=== PATIENT | female | born 1960 ===

== ENCOUNTER 2018-09-03 05:39 | Inpatient (IN) ==
[2018-09-03] MEDS ORDERED: Lactated Ringers 1,000 ML PRIMARY IV ONE ×3 (05:46→11:49)
[2018-09-03] MEDS ORDERED: ceFAZolin Inj 2gm (Premix) 2 GM/50 ML BAG IV ONE ×2 (05:47→06:00)
[2018-09-03] MEDS ORDERED: Vancomycin-PHA to Dose IV PRN (06:00)
[2018-09-03] MEDS ORDERED: Nasal Sanitizer POPSWAB ampule 3 AMP (Nozin) PREOP DOSE ENOS SCH (06:00)
[2018-09-03] MEDS ORDERED: LIDOCAINE W/ SODIUM BICARB 0.5 ML SYR SUBD ONE (06:00)
[2018-09-03 06:17] LABS: BILIRUBIN,URINE NEGATIVE (NEG); CLARITY,URINE CLEAR (CLEAR); COLOR,URINE YELLOW (Y); GLUCOSE, URINE (UA) NEGATIVE (NEG); OCCULT BLOOD,URINE MODERATE (NEG); PROTEIN,URINE NEGATIVE (NEG); UROBILINOGEN,URINE 0.2 EU/dL (0.2)
[2018-09-03 06:18] LABS: URINE SAMPLE TYPE CLEAN CATCH URINE
[2018-09-03 06:23] LABS: SQUAMOUS EPITHELIAL CELL,UR FEW
[2018-09-03] MEDS ORDERED: BACITRACIN 50,000 UNIT VIAL IRRIG ONE ×2 (06:55→11:56)
[2018-09-03] MEDS ORDERED: Sodium Chloride 0.9% vial 10 ML ONE ×2 (06:55→11:56)
[2018-09-03] MEDS ORDERED: BUPIVACAINE 0.25% W/ EPI - 10 ML VIAL ONE (06:59)
[2018-09-03] MEDS ORDERED: LIDOCAINE HCL 2 % 10 ML JELLY URO-JECT TOPICAL ONE ×2 (07:01→07:15)
[2018-09-03] MEDS ORDERED: fentaNYL Inj 250 MCG/5 ML VIAL ONE (07:01)
[2018-09-03] MEDS ORDERED: ROCURONIUM 10 MG/1 ML - 5 ML VIAL IVP ONE (07:04)
[2018-09-03] MEDS ORDERED: SCOPOLAMINE HYDROBROMIDE 1.5 MG - 1 EACH PATCH TRANSDERM ONE (07:18)
[2018-09-03] MEDS ORDERED: ceFAZolin 1 GM VIAL ONE (11:36)
[2018-09-03] MEDS ORDERED: FUROSEMIDE 10 MG/1 ML - 4 ML ONE (11:36)
[2018-09-03] MEDS ORDERED: Propofol 1,000 MG/100 ML VIAL IV ONE (11:49)
[2018-09-03] MEDS ORDERED: ceFAZolin Inj 1 GM in Sodium Chloride 0.9% 100 ML IV ONE (12:16)
[2018-09-03] MEDS ORDERED: MORPHINE SULFATE 2 MG/1 ML IVP PRN (12:32)
[2018-09-03] MEDS ORDERED: ONDANSETRON 4 MG/2 ML VIAL IVP PRN ×2 (12:32→13:40)
[2018-09-03] MEDS ORDERED: Metoclopramide Inj 10 MG/2 ML VIAL IVP PRN (12:32)
[2018-09-03] MEDS ORDERED: NALOXONE 0.4 MG/1 ML VIAL IVP PRN (12:32)
[2018-09-03] MEDS ORDERED: Prochlorperazine Edisylate Inj 10mg/2ml vial IVP PRN ×2 (12:32→13:40)
[2018-09-03] MEDS ORDERED: LIDOCAINE W/ SODIUM BICARB 0.5 ML SYR SUBD PRN (12:32)
[2018-09-03] MEDS ORDERED: PROMETHAZINE 25 MG/1 ML VIAL IM PRN ×2 (12:32→13:40)
[2018-09-03] MEDS ORDERED: fentaNYL Inj 100 MCG/2 ML VIAL IVP PRN (12:32)
[2018-09-03] MEDS ORDERED: Meperidine Inj 50 MG/ML CARPUJECT IVP PRN (12:32)
--- NOTE | 2018-09-03 12:32 | CRNA.PROGR ---
Anesthesia Time - Procedure/Recovery Time Start Date: 09/03/18 End Date: 09/03/18 Anesthesia : Time In: 07:35 Anesthesia : Time Out: 12:27 Anesthesia : Total Time: 292 - Total Anesthesia Time Total Anesthesia Time (minutes): 292 - Other Weight: 41.821 kg Height: 4 ft 10 in Body Mass Index (BMI): 19.3 Anesthesia Type: General Anesthesia : ET
--- NOTE | 2018-09-03 12:32 | CRNA.PROGR ---
Anesthesia Recovery Phase I - Post Anesthesia Evaluation Patient's Condition on Arrival in Phase I: Stable (awake) Pain Level: 2
[2018-09-03] MEDS: HYDROmorphone 2 MG/1 ML IVP PRN ×2 (12:41→13:00)
[2018-09-03] MEDS ORDERED: HYDROmorphone 2 MG/1 ML ONE (12:41)
[2018-09-03] MEDS ORDERED: Lactated Ringers 1,000 ML PRIMARY IV SCH (12:45)
--- NOTE | 2018-09-03 13:12 | GEN.OPNOTE ---
Operative Note Surgery Date: 09/03/18 Preoperative Diagnosis: 1. Persistent chronic severe neck pain. 2. Multilevel cervical degenerative disc disease C3-C7, most advanced C5-6. 3. Multilevel cervical spondylosis with facet arthropathy and hypertrophy. 4. Possible/likely C5-6 and C6-7 pseudofusion. 5. Status post C5-6 and C6-7 facet joint fusions using the DTRAX system. Postoperative Diagnosis: 1. Persistent chronic severe neck pain. 2. Multilevel cervical degenerative disc disease C3-C7, most advanced C5-6. 3. Multilevel cervical spondylosis with facet arthropathy and hypertrophy. 4. Pseudofusion C5-6 and C6-7. 5. Status post C5-6 and C6-7 facet joint fusions using the DTRAX system. Procedure: 1.) Arthrodesis, anterior cervical, with discectomy, osteophytectomy, and foraminotomies bilaterally with removal of the posterior longitudinal ligame nt with disc space preparation for fusion of the interspace, C3-4. (CPT code: 04981). 2.) Arthrodesis, anterior cervical, with discectomy, osteophytectomy and foraminotomies bilaterally with removal of the posterior longitudinal ligament with disc space preparation for fusion of the interspace, C4-5. (CPT code: 49350). 3.) Arthrodesis, anterior cervical, with discectomy, osteophytectomy and foraminotomies bilaterally with removal of the posterior longitudinal ligament with disc space preparation for fusion of the interspace, C5-6. (CPT code: 48752). 4.) Arthrodesis, anterior cervical, with discectomy, osteophytectomy and foraminotomies bilaterally with removal of the posterior longitudinal ligament with disc space preparation for fusion of the interspace, C6-7. (CPT code: 48035). 5.) Insertion of a 6 mm x 12 mm x 14 mm 6-degree lordotic [place] Tritanium C titanium anterior cervical cage filled in the center with [place] DBM Putty (implantable allograft) into the C3-4 interspace for fusion of the C3-4 interspace. (CPT code: 44847). 6.) Insertion of a 7 mm x 12 mm x 14 mm 6-degree lordotic [place] Tritanium C titanium anterior cervical cage filled in the center with [place] DBM Putty (implantable allograft) into the C4-5 interspace for fusion of the C4-5 interspace. (CPT code: 13963). 7.) Insertion of a 7 mm x 12 mm x 14 mm 6-degree lordotic [place] Tritanium C titan ium anterior cervical cage filled in the center with Sidra DBM Putty (implantable allograft) into the C5-6 interspace for fusion of the C5-6 interspace. (CPT code: 26804). 8.) Insertion of a 7 mm x 12 mm x 14 mm 6- degree lordotic [place] Tritanium C titanium anterior cervical cage filled in the center with [place] DBM Putty (implantable allograft) into the C6-7 interspace for fusion of the C6-7 interspace. (CPT code: 05254). 9.) Anterior cervical plating, C3-7 using a 4 level, 10 hole, 60 mm Sidra Aviator titanium anterior cervical plate affixed to the C3 vertebral body with 4.0 mm x 14 mm variable angle titanium anterior cervical screws, to the C4, C5, and C6 vertebral bodies using 4.0 mm x 12 mm variable angle titanium anterior cervical screws, and to the C7 vertebral body using 4.0 mm x 14 mm fixed angle titanium anterior cervical screws. (CPT code: 48486). 10.) Use of 5 cc of [place] BIO DBM Putty (implantable allograft) for filling of the anterior cervical cages. (CPT code: 64774). 11.) Use of the operative microscope for the microsurgical techniques used for the C3-4, C4-5, C5-6, and C6-7 discectomies and foraminotomies. (CPT code: 92653). 12.) Use of intra-operative fluoroscopy for location of the correct surgical levels and for confirmation of the final position of the intervertebral cages and final confirmation of the position of the anterior cervical hardware elements. 13.) Use of intra-operative neuromonitoring including EMG's, SSEP's, and MEP's. Surgeon: Kwasi Gonzalez MD Letter Stamping Machine Operator: REMA Baker Anesthesia Provider: Brad Sanchez MD Anesthesia Type: General Estimated Blood Loss (mL): 100 Fluids: See anesthesia record Pathology: None Indications: Ms. Fiore is a 57 year old woman with chronic neck pain. She is a previous patient of Dr. Isabel at [facility]. She is status post a C5-6, C6-7 DTRAX procedure performed in April [address] Isabel. She states her neck pain was better after this surgery for only a short time, but she now rates her neck pain at a 10/10 every day. She denies any arm pain or weakness. She had a cervical imaging studies that demonstrated multilevel cervical degenerative disc disease and multilevel cervical spondylosis with retrolisthesis of C5 on C6 and anterolisthesis of C6 and C7. The studies demonstrated bilateral C5-6 and C6-7 facet cages. She has failed to have improvement in her significant neck pain with expectant management and with non- operative therapies. We had discussed the option of proceeding with a C3-4, C4- 5, C5-6, and C6-7 anterior cervical discectomy and fusion for possible more durable relief of her symptoms. She wished to proceed with the surgical procedure. She presents today for the surgical procedure. Findings: 1.) Multilevel diffuse disc/osteophyte complexes. 2.) Abnormal (greater then physiologic motion) C4-5. 3.) Completely collapsed C5-6 disc space with posterior partially calcified annulus and ligament. 6.) Pseudofusion C5-6 and C6-7. Complications: None Operative Summary: Ms. Fiore was met in the preoperative area. Her documented surgical history and physical was reviewed. We reviewed the procedure to be performed and we were in agreement on the procedure to be performed and this matched what was written on the patient's consent form. Any questions that Ms. Fiore or her family had were answered before she was taken back to the operating room suite. Ms. Fiore was brought back to the operating room suite. She was moved over onto the surgical bed in supine position. General anesthesia was induced by the anesthesia staff and she was intubated. A Hartley catheter was placed in her bladder for the procedure. She had pneumatic compression hose placed on her lower legs bilaterally. Her head was placed on a gel ring and rolled up surgical towels were placed in the intrascapular area and under her shoulders bilaterally. Her arms were gently tucked at her sides. All bony prominences were well padded. Her Hartley catheter was checked to be free from kinks. Her pneumatic compression hose were attached to a pneumatic compression devise. The C-arm fluoroscopy unit was used to help localize the skin incision for the approach to the intended surgical levels. The skin was marked along the medial border of the sternocleidomastoid muscle with a skin marker. Ms. Fiore was prepped and draped in the usual and standard fashion. She was given 2 grams of Ancef and 1 gram of vancomycin IV for perioperative antibiosis. A standard surgical timeout was performed identifying the correct patient, the correct procedure, and the correct equipment being available for the procedure. The intended skin incision was injected subcutaneously with quarter percent Marcaine with 1 in 200,000 epinephrine. The skin was incised with a 10 blade scalpel and all dermal and superficial bleeding points controlled with bipolar cautery. Dissection was continued down through the subcutaneous tissue to the level of the platysma muscle. The platysma muscle was incised with the Metzenbaum scissors in the direction of the skin incision. This allowed identification the medial border of the sternocleidomastoid muscle. Further dissection identified the omohyoid muscle which was circumferentially dissected out, tagged with two 0-Silk suture and then cut with a Metzenbaum scissors with the muscle stumps retracted with snaps attached to the sutures. Continued dissection was performed medial to the sternocleidomastoid muscle in both a sharp and blunt fashion down to the pre- vertebral fascia. The carotid artery was palpated to be lateral to the dissection plane. Cloward hand-held retractors were used to retract and protect the soft tissues while the prevertebral fascia was dissected with a Kitner. Once a disc space became exposed a bent spinal needle was placed into the disc space and the level was localized as the C4-5 level, one of the intended surgical levels with lateral fluoroscopy. Continued dissection of the prevertebral fascia was performed exposing the C3, C4, C5, C6, and C7 vertebral bodies. The medial border of the longus coli muscle was dissected with Bovie cautery with an insulated tip turned down to a low setting from C3-C7 bilaterally. The hand-held Cloward retractors were then replaced with the Anesthesiology Crna self-retaining retractor system which was first placed at the C3-4 level to expose this level and protect the soft tissues at this level. A 12 mm distraction pin was placed into the C3 vertebral body and another was placed into the C4 vertebral body. The operative microscope was brought into the surgical field and used for the microsurgical techniques used for the C3-4 discectomy. An annulotomy was performed with a 15 blade scalpel and disc material was removed with a pituitary rongeur. Additional disc and cartilaginous endplate was loosened in the disc space using a small straight curette with the fragments being removed with a pituitary rongeur. The high-speed Ogorod Javier drill with a matchstick bit was used to perform arthrodesis/decortication of the C3 and C4 endplates preparing the endplates for fusion. The same drill with the same bit was used to drill away the prominent diffuse osteophytes along the posterior inferior aspect of the C3 vertebral body and the posterior superior aspect of C4 vertebral body as well as the uncovertebral joints bilaterally which were hypertrophied bilaterally. Foraminotomies were performed bilaterally with the same drill with same bit. A nerve hook was used to define the plane between the posterior longitudinal ligament and the dura. The posterior longitudinal ligament was completely removed with small Kerrison punches. The same instruments were used to extend the foraminotomies bilaterally that had been started with the high-speed drill with a matchstick bit. Excellent decompression of the spinal canal, neuroforamen, and exiting nerve ro ots was assured both by visual inspection as well as by palpation with a nerve hook underneath the vertebral bodies and out the neuroforamen bilaterally. The interspace was irrigated with bacitracin irrigation. FloSeal hemostatic agent was placed over all exposed dural elements. The interspace was sized the appropriate size anterior cervical cage. A 6 mm x 14 mm x17 mm 6-degree lordotic Tritanium C titanium anterior cervical cage was selected and filled in the center with [place]ra DBM Putty (implantable allograft) and then inserted into the C3-4 interspace with the bartender manager. On insertion it was felt that the cage may be deeper then the vertebral body and lateral radiographic imaging did demonstrate the cage to protrude slightly anterior and posterior to the edges of the vertebral bodies so it was subsequently removed. A small footprint cage was then selected, a 6 mm x 12 mm x 14 mm 6-degree lordotic Tritanium C titanium anterior cervical cage was filled in the center with [place] DBM Putty (implantable allograft) and then inserted into the C3-4 interspace with the bartender manager. The cage was gently countersunk with a bone tamp and mallet. The cage obtained good purchase between the C3 and C4 endplates. The final position of the cage was confirmed with lateral fluoroscopy. The C3 Baldwin distraction pin was removed and bony bleeding was controlled with FloSeal and a surgical vivien. The Anesthesiology Crna self-retaining retractor system was removed and placed across the C4-5 level for the exposure this level and the protection of the soft tissues at this level. The Baldwin distraction pin was placed into the C5 vertebral body. The operative microscope was used for the microsurgical techniques used for the C4-5 discectomy. An annulotomy was performed with a 15 blade scalpel and disc material was removed with a pituitary rongeur. Additional disc and cartilaginous endplate was loosened in the disc space with a small straight curette with the fragments being removed with a pituitary ronqeur. This level demonstrated greater movement between the C4 and C5 vertebral bodies during the dissection, greater then expected physiologic motion. The high-speed Ogorod Javier drill with a matchstick bit was used to perform arthrodesis/decortication of the C4 and C5 endplates preparing the endplates for fusion. The same drill with the same bit was used to drill away the diffuse, prominent osteophytes along the posterior inferior aspect of the C4 vertebral body and the posterior superior aspect of the C5 vertebral body as well as to drill away the uncovertebral joint hypertrophy bilaterally. Foraminotomies were performed bilaterally with the same drill with the same bit. A nerve hook was used to define the plane between the posterior longitudinal ligament and the dura. The posterior longitudinal ligament was completely removed with small Kerrison punches. The same instruments were used to extend the foraminotomies bilaterally that had been started with the high-speed drill with a matchstick bit. Excellent decompression of the spinal canal, neuroforamen, and exiting nerve roots was assured both by visual inspection as well as by palpation with a nerve hook underneath the vertebral bodies and out the neuroforamen bilaterally. The interspace was irrigated with bacitracin irrigation. FloSeal hemostatic agent was placed over all exposed dural elements. The interspace was sized the appropriate size anterior cervical cage. A 7 mm x 12 mm x 14 mm 6-degree Tritanium C titanium anterior cervical cage was selected and filled in the center with Sidra DBM Putty (implantable allograft) and then inserted into the C4-5 interspace with the bartender manager. The cage was gently countersunk with a bone tamp and mallet. The cage obtained good purchase between the C4 and C5 endplates. The final position of the cage was confirmed with lateral fluoroscopy. The C5 Baldwin distraction pin was removed and bony bleeding was controlled with FloSeal and a surgical vivien. The Anesthesiology Crna self-retaining retractor system was removed and placed across the C5-6 level for the exposure this level and the protection of the soft tissues at this level. The Baldwin distraction pin was placed into the C6 vertebral body. The operative microscope was used for this microsurgical techniques used for the C5-6 discectomy. An annulotomy was performed with a 15 blade scalpel and disc material was removed with a pituitary rongeur. Additional disc and cartilaginous endplate was loosened in the anterior aspect of the disc space with a small straight curette with the fragments being removed with a pituitary ronqeur. The disc space was quite collapsed and there was minimal movement at this level. The high-speed Ogorod Javier drill with a matchstick bit was used to perform the majority of the discectomy at this level and to perform the arthrodesis/decortication of the C5 and C6 endplates preparing the endplates for fusion. The same drill with the same bit was used to drill away the diffuse, prominent osteophytes along the posterior inferior aspect of the C5 vertebral body and the posterior superior aspect of the C6 vertebral body as well as to drill away the uncovertebral joint hypertrophy bilaterally. Foraminotomies were performed bilaterally with the same drill with the same bit. A nerve hook was used to define the plane between the posterior longitudinal ligament and the dura. The posterior longitudinal ligament was completely removed with small Kerrison punches. The same instruments were used to extend the foraminotomies bilaterally that had been started with the high-speed drill with a matchstick bit. Excellent decompression of the spinal canal, neuroforamen, and exiting nerve roots was assured both by visual inspection as well as by palpation with a nerve hook underneath the vertebral bodies and out the neuroforamen bilaterally. The interspace was irrigated with bacitracin irrigation. FloSeal hemostatic agent was placed over all exposed dural elements. The interspace was sized the appropriate size anterior cervical cage. A 7 mm x 12 mm x 14 mm 6-degree Tritanium C titanium anterior cervical cage was selected and filled in the center with Sidra DBM Putty (implantable allograft) and then inserted into the C5-6 interspace with the bartender manager. The cage was gently countersunk with a bone tamp and mallet. The cage obtained good purchase between the C6 and C7 endplates. The final position of the cage was confirmed with lateral fluoroscopy. The C5 Baldwin distraction pin was removed and bony bleeding was controlled with FloSeal and a surgical vivien. The Anesthesiology Crna self-retaining retractor system was removed and placed across the C5-6 level for the exposure this level and the protection of the soft tissues at this level. The Baldwin distraction pin was placed into the C7 vertebral body. The operative microscope was used for the microsurgical techniques used for the C6-7 discectomy. An annulotomy was performed with a 15 blade scalpel and disc material was removed with a pituitary rongeur. Additional disc and cartilaginous endplate was loosened in the anterior disc space with a small straight curette with the fragments being removed with a pituitary ronqeur. The high-speed [employer] drill with a matchstick bit was used to perform the majority of the discectomy at this level due to the degree of disc space collapse and to perform arthrodesis/decortication of the C6 and C7 endplates preparing the endplates for fusion. This level was clearly not fused from the patient's previous posterior DTRAX procedure. The same drill with the same bit was used to drill away the diffuse, prominent osteophytes along the posterior inferior aspect of the C6 vertebral body and the posterior superior aspect of the C7 vertebral body as well as to drill away the uncovertebral joint hypertrophy bilaterally. Foraminotomies were performed bilaterally with the same drill with the same bit. A nerve hook was used to define the plane between the posterior longitudinal ligament and the dura. The posterior longitudinal ligament was completely removed with small Kerrison punches. The same instruments were used to extend the foraminotomies bilaterally that had been started with the high-speed drill with a matchstick bit. Excellent decompression of the spinal canal, neuroforamen, and exiting nerve roots was assured both by visual inspection as well as by palpation with a nerve hook underneath the vertebral bodies and out the neuroforamen bilaterally. The interspace was irrigated with bacitracin irrigation. FloSeal hemostatic agent was placed over all exposed dural elements. The interspace was sized the appropriate size anterior cervical cage. A 7 mm x 12 mm x 14 mm 6-degree Tritanium C titanium anterior cervical cage was selected and filled in the center with [place] DBM Putty (implantable allograft) and then inserted into the C6-7 interspace with the bartender manager. The cage was gen tly countersunk with a bone tamp and mallet. The cage obtained good purchase between the C6 and C7 endplates. The final position of the cage was confirmed with lateral fluoroscopy. The Baldwin distraction pins in the C6 and C7 vertebral bodies were removed. Bony bleeding was controlled FloSeal and surgical patties. The Anesthesiology Crna self- retaining retractor system was removed and placed in the center portion of the surgical dissection to provide the proper exposure needed for the instrumentation portion of the procedure. Any remaining C3, C4, C5, C6, and C7 anterior osteophytes were removed with the large [place] rongeur as well as with the high speed drill with the matchstick bit. The appropriate size anterior cervical plate were selected both by visual inspection as well as by lateral fluoroscopy. A 4 level, 10 hole, 60 mm Sidra Aviator titanium anterior cervical plate was selected and affixed to the C3 vertebral bodies using 4.0 mm x 14 mm variable angle titanium anterior cervical screws and to the C4, C5, and C6 vertebral bodies using 4.0 mm x 12 mm variable angle titanium screws, and to the C7 vertebral body using 4.0 mm x 14 mm fixed angle titanium anterior cervical screws. All screws obtained good purchase in the vertebral body bone. The locking mechanism was then deployed at each with visual inspection confirming that the locking mechanism fully deployed across each of the screw heads at each level of the plate bilaterally. The Anesthesiology Crna self-retaining retractor system was removed from the surgical site. Final AP and lateral fluoroscopic images were obtained. The thrasher of the dissection plane were inspected for any bleeding points. Any identified were coagulated with bipolar cautery. The surgical site was copiously irrigated with bacitracin irrigation allowing the irrigant to sit to again inspect for any bleeding points with none identified. A medium LACIE drain was placed into the surgical site. The closure portion of the procedure was begun. The omohyoid muscle was re-approximated by the 0-Silk suture attached to the muscle stumps and by two interrupted 3-0 Vicryl suture. The platysma muscle was reapproximated with 3-0 Vicryl suture in an interrupted fashion. The dermis and superficial subcutaneous tissue was reapproximated with 3-0 Vicryl suture in an inverted interrupted fashion. The incision was cleansed with a bacitracin soaked sponge and dried with a sterile dry sponge. Steri-Strips were placed across the incision. The incision was dressed with a Covaderm dressing. The surgical drain was secured with suture. The drain site was dressed. All surgical drapes removed from Ms. Fiore. She was carefully moved over onto the PACU stretcher. She was awoken and extubated by the anesthesia staff. She was taken to the recovery room in stable condition. All surgical counts reported as correct by the scrub and circulating personnel. A Physician's Letter Stamping Machine Operator, Ms. Felipa Syed PA-C, assisted with the procedure including the exposure and closure portions of the procedure. She also provided irrigation and suctioning throughout the procedure.
[2018-09-03] MEDS ORDERED: Vancomycin-PHA to Dose IV SCH (13:40)
[2018-09-03] MEDS ORDERED: MAGNESIUM 400 MG/5 ML - 30 ML (MILK OF MAGNESIA) PO PRN (13:40)
[2018-09-03] MEDS ORDERED: MAGNESIUM CITRATE 296 ML SOLUTION PO PRN (13:40)
[2018-09-03] MEDS ORDERED: Fleet Enema 133ml RECTAL PRN (13:40)
[2018-09-03] MEDS ORDERED: DIAZEPAM 5 MG TABLET PO PRN (13:40)
[2018-09-03] MEDS ORDERED: DIAZEPAM 10 MG/2 ML (5 MG/1 ML) CARPUJECT IVP PRN (13:40)
[2018-09-03] MEDS ORDERED: NICOTINE 14 MG /DAY PATCH TRANSDERM PRN (13:40)
[2018-09-03] MEDS ORDERED: Ondansetron ODT Tab 4 MG TAB PO PRN (13:40)
[2018-09-03] MEDS ORDERED: BISACODYL 5 MG TABLET PO PRN (13:40)
[2018-09-03] MEDS ORDERED: DOCUSATE 100 MG CAPSULE PO PRN (13:40)
--- NOTE | 2018-09-03 14:11 | CONSULT ---
Consult Note - Consult Consult Date: 09/03/18 Reason for Consult: PostOp Consulation : Neuro Requesting Physician: Dr. Gonzalez Primary Care Provider: NONE NONE - History of Present Illness History of Present Illness: This is a 57 years old female with medical history significant for history of chronic neck pain secondary to multilevel cervical degenerative disc disease, history of migraine headache who came into the hospital to have neck surgery and was done by Dr. Gonzalez please see his note. The hospitalist service were consulted postoperatively for management of medical issues. The patient was laying in bed does not appear in distress. She is denying any complaint there is no pain no nausea no headache no shortness of breath. Past Medical History Medical History: 1. History of migraine headaches takes Imitrex as needed. 2. History of chronic neck pain Surgical History: 1. History of neck surgery before Family History: Reviewed an Not Pertinent Past Social History: Lives in [facility], she smokes planning on quitting, doesn't drink no drugs. Tobacco Use: Current Every Day Smoker In the Past 12 Months, Have Used or Abuse Any of the Following Substance: None Review of Systems - Review of Systems All Systems: Reviewed & No Additional Complaints Except as Stated Medication / Allergies Home Medications: Home Medications Medication Instructions Recorded Confirmed clonazepam 1 mg tablet 1 mg PO TID 03/06/18 09/03/18 doxylamine succinate 25 mg tablet 25 mg PO QHS PRN 03/06/18 09/02/18 erenumab-aooe 70 mg/mL 140 mg SUBCUT QMONTH 03/06/18 09/03/18 subcutaneous auto-injector sumatriptan 100 mg tablet 100 mg PO Q2-4H PRN 03/06/18 09/03/18 tizanidine 4 mg capsule 4 mg PO TID PRN 03/06/18 09/03/18 Nicotine [Nicoderm Cq] 1 ea TD PRN PRN 09/02/18 09/02/18 Tramadol HCl [Ultram] 50 mg PO Q4HR 09/02/18 09/03/18 Multivit-Minerals/Ferrous Gluc 9 mg PO 09/03/18 [Multi-Jaquan Liquid] Potassium 99 mg PO 09/03/18 Allergies/Adverse Reactions: Allergies Allergy/AdvReac Type Severity Reaction Status Date / Time divalproex sodium Allergy Severe Other : Verified 09/03/18 13:44 [From Depakote] See Comment topiramate [From Topamax] Allergy Severe Other : Verified 09/03/18 13:44 See Comment amitriptyline Allergy Intermediate Other : Verified 09/03/18 13:44 See Comment gabapentin AdvReac Intermediate Other : Verified 09/03/18 13:44 See Comment Exam - Vitals Vital Signs: Vital Signs Temperature 97.3 F Temperature Source Temporal Artery Scan Pulse Rate [Pulse Oximeter] 79 Pulse Rate 96 Respiratory Rate 20 Blood Pressure [Right Arm] 109/72 Blood Pressure 108/78 Pulse Ox 97 Oxygen Flow Rate 3 Oxygen Delivery Method Nasal Cannula Height 4 ft 10 in Weight 92 lb 3.2 oz - General General Appearance: No Acute Distress, Cooperative - Head Head Exam: Normal Inspection - Eye Eye Exam: POSITIVE: Normal Appearance - ENT ENT Exam: POSITIVE: Normal Exam - Neck Additional Neck Exam Details: Dressing applied to the neck anteriorly. - Respiratory Respiratory Exam: POSITIVE: Clear to Auscultation - Bilaterally - Cardiovascular Cardiovascular Exam: POSITIVE: RRR - GI/Abdominal GI/Abdominal Exam: POSITIVE: Normal Bowel Sounds, Non Tender, Non Distended, Soft, No Organomegaly - Rectal Rectal Exam: POSITIVE: Deferred - External Exam: POSITIVE: Deferred Exam: POSITIVE: Deferred - Extremities Extremities Exam: POSITIVE: Normal Inspection - Neurological Neurological Exam: POSITIVE: Alert, Oriented x 3, CN II-XII Intact, No Facial Droop, Speech Intact / Clear, Moves All Extremities Equally - Psychiatric Psychiatric Exam: POSITIVE: Normal Affect Assessment and Plan - Patient Problems (1) Chronic neck and back pain Current Visit: No Status: Chronic Comment: Status post surgery management per Dr. Gonzalez. He wrote for pain medications. Code(s): M54.2 - Cervicalgia; M54.9 - Dorsalgia, unspecified; G89.29 - Other chronic pain (2) History of migraine Current Visit: Yes Status: Acute Comment: She's currently denying symptoms. Will watch. Code(s): Z86.69 - Personal history of other diseases of the nervous system and sense organs
[2018-09-03] MEDS: traMADol 50 MG TABLET PO SCH ×2 (15:20→19:58)
[2018-09-03] MEDS: ClonazePAM Tab 1 MG TABLET PO SCH ×2 (15:20→20:04)
[2018-09-03] MEDS ORDERED: SUMAtriptan Tab 25 MG TAB PO SCH (18:30)
--- NOTE | 2018-09-03 18:30 | NEURO.PROG ---
Subjective Post Op Day: 0 Pain Management: PO Hartley Catheter: Yes Diet: Regular Ambulating: Yes Additional Details: Comfortably sitting on the side of the bed on med/surg floor. Neck feels better. Denies arm symptoms. Voice normal. Good movement all extremities. Good pharmacy service associate bilaterally. Can easily put hands on head and straight up in the air bilaterally. Continue post-operative antibiotics. Continue post-operative pain control. Advance diet. Mobilize. Objective : Data - Vital Signs Vital Signs and I&O: Vital Signs - Last Taken Temperature 97.4 F 09/03/18 15:30 Pulse Rate 82 09/03/18 15:30 Respiratory Rate 18 09/03/18 15:30 Blood Pressure 100/57 09/03/18 15:30 Pulse Ox 98 09/03/18 15:30 Intake and Output (24hr x 4 totals) 09/01/18 09/02/18 09/03/18 09/04/18 05:59 05:59 05:59 05:59 Intake Total 1200 / 1200 Output Total 1750 / 1750 Balance -550 / -550
[2018-09-03] MEDS: ceFAZolin Inj 1 GM in Sodium Chloride 0.9% 100 ML IV SCH (20:04)
[2018-09-03] MEDS: SUMAtriptan Tab 25 MG TAB PO PRN (20:05)
[2018-09-03] MEDS: traMADol 50 MG TABLET PO PRN (20:05)
[2018-09-04] MEDS: SUMAtriptan Tab 25 MG TAB PO PRN (00:29)
[2018-09-04] MEDS ORDERED: ClonazePAM Tab 1 MG TABLET PO ONE (01:40)
[2018-09-04] MEDS: traMADol 50 MG TABLET PO PRN (01:53)
[2018-09-04] MEDS: ceFAZolin Inj 1 GM in Sodium Chloride 0.9% 100 ML IV SCH (03:37)
[2018-09-04 05:00] LABS: BASOPHILS # (AUTO) 0.02 10*3/UL; BASOPHILS % (AUTO) 0.2 % (0-1); EOSINOPHILS # (AUTO) 0 10*3/UL; EOSINOPHILS % (AUTO) 0 % (0-8); Hematocrit [HCT] 36.6 % (37.0-47.0); Hemoglobin [HGB] 11.9 g/dL (12.0-16.0); LYMPHOCYTES # (AUTO) 1.87 10*3/uL; MEAN CORPUSCULAR HEMOGLOBIN 31.2 PG (27-31); MEAN CORPUSCULAR HGB CONC 32.5 g/dL (33-37); MEAN CORPUSCULAR VOLUME 96.1 FL (81-99); MEAN PLATELET VOLUME 10.5 FL (7.4-12.2); MONOCYTES # (AUTO) 0.89 10*3/UL (0.3-0.8); MONOCYTES % (AUTO) 7.5 % (5-15); NEUTROPHILS # (AUTO) 9.04 10*3/UL; NEUTROPHILS % (AUTO) 76.3 % (50-80); RED BLOOD COUNT 3.81 10^6/uL (4.20-5.40)
[2018-09-04 05:25] LABS: BLOOD UREA NITROGEN 10 mg/dL (7-22)
[2018-09-04 05:30] LABS: PLATELET MORPHOLOGY COMMENT NORMAL MORPHOLOGY (NORM); RBC MORPHOLOGY COMMENT NORMAL MORPHOLOGY (NORM); WBC MORPHOLOGY COMMENT NORMAL MORPHOLOGY (NORM)
[2018-09-04 06:39] VITALS: BP 125/72; RESP 18; TEMP 97.5; O2SAT 92
--- NOTE | 2018-09-04 07:02 | NEURO.PROG ---
Subjective Post Op Day: 1 Pain Management: PO Hartley Catheter: No Diet: Regular Ambulating: Yes Additional Details: Ms Fiore is awake and alert. Neuro exam by Dr Gonzalez revealed good muscle and hand strength bilaterally. Jhon complained of mild difficulty swallowing but says it's much better this morning. Her dressing is dry and intact. The hemovac drain put out 35ml in 12 hours. She has been up walking and feels ready to go home. She was given post op incision care and activity instructions She was given a post op appointment to see Dr. Gonzalez in his [facility] on 09/18. Plan: Continue to mobilize Discontinue hemovac drain Discharge home Objective : Data - Labs CBC and BMP: 09/04/18 04:25 09/04/18 04:25 - Vital Signs Vital Signs and I&O: Vital Signs - Last Taken Temperature 97.5 F 09/04/18 06:37 Pulse Rate 57 L 09/04/18 06:37 Respiratory Rate 18 09/04/18 06:37 Blood Pressure 125/72 09/04/18 06:37 Pulse Ox 92 09/04/18 06:37 Intake and Output (24hr x 4 totals) 09/02/18 09/03/18 09/04/18 09/05/18 05:59 05:59 05:59 05:59 Intake Total 3052 / 3052 Output Total 2310 / 2310 200 / 200 Balance 742 / 742 -200 / -200
[2018-09-04] MEDS ORDERED: traMADol 50 MG TABLET PO SCH (09:00)
[2018-09-04] MEDS: ClonazePAM Tab 1 MG TABLET PO SCH (09:32)
--- NOTE | 2018-09-04 16:15 | PTI REPORT ---
Thank you for the referral of Sarah Fiore. She was seen on 09/03/18 for an inpatient evaluation status post cervical fusion. SUBJECTIVE: The patient is a 57-year-old female who underwent a cervical fusion earlier today. The patient states that she is doing well this afternoon and is looking forward to getting up and walking. The patient reports a pain level of 6/10 on the verbal analog scale (0=no pain, 10=worst pain) at this time. She states that prior to her surgery she has been dealing with occipital neuralgia and migraines which have been limiting her at times. The patient states that she lives in [place] in an apartment where she lives alone. She reports that she has 11 steps up into her house. She denies any previous use of an assistive device or any recent falls. The patient reports that she has had a left hip replacement and a left knee surgery within the last year. PAST MEDICAL HISTORY: Past medical history can be found in the patient's medical record. OBJECTIVE FINDINGS: General observations: The patient was alert and oriented to setting upon PT arrival. The patient was instructed on post cervical fusion precautions including to wear her brace whenever she is up and lifting restrictions. Transfers: The patient was able to transfer from bed to stand with stand by assist x1 for safety. The patient was instructed on how to properly don and doff the cervical collar. Once the cervical collar was in place the patient reported that her pain greatly improved as she felt more stable. The patient was instructed on post cervical fusion precautions including to wear her brace whenever she is up and lifting restrictions. Ambulation: The patient was able to ambulate 150 feet. We did utilize the walker at first as this was the first time she was standing up and was a little unsteady. The patient was able to complete ambulation without any increase in pain. Bed mobility: The patient transferred back into bed. ASSESSMENT: The patient has good rehab potential. Problem List: Patient is status post cervical fusion Short-Term Goals: To be met by discharge from inpatient: Patient will be able to don and doff her cervical collar independently. Patient will be able to transfer from bed to stand safely and independently. Patient will be able to ambulate 150 feet safely and independently without assistive device. Patient will be able to ascend and descend one flight of stairs safely and independently with a hand rail on the left. Long-Term Goals: To be met following discharge from inpatient: Patient may be seen by outpatient physical therapy if deemed necessary by her surgeon. TREATMENT PLAN: Patient will be seen tomorrow morning. As long as the patient continues to do well, we will practice stairs and patient will meet her therapy goals. We anticipate that the patient will discharge tomorrow after morning PT session. INITIAL TREATMENT: Treatment today consisted of the initial evaluation only. Following treatment the patient was left in bed with call light within reach and bed alarm set. MTDD
--- NOTE | 2018-09-04 16:20 | PT AM DAY ---
Diagnosis : Cervical Fusion AM - Physical Therapy S: The patient states she is doing very well this morning. She participated with occupational therapy prior to physical therapy. She has been up and moving about in her room and has gotten dressed and is hoping to get to discharge within the next hour. The patient is very willing to perform stair activity. O: A gait belt was placed around the patient and she ambulated 150 feet safely with stand by assist x1. The patient was able to ambulate up and down a flight of stairs and perform this two times with stand by assist x1. The patient's only complaint was that her left knee was a little stiff with walking the stairs but the more she did it, the better she felt. The patient transferred back to her room. The therapist did notify nursing staff that we did not place an alarm on the patient as she was getting her stuff packed up and nursing staff was fine with that. A: The patient has met all goals for therapy and is safe to return back home. P: Patient will be discharged from therapy as goals have been met. JUDD
--- NOTE | 2018-09-04 16:52 | OTI REPORT ---
Thank you for the referral of Sarah Fiore. She was seen on 09/04/18 for an occupational therapy inpatient evaluation status post cervical fusion. SUBJECTIVE: The patient is a 57-year-old female. The patient reports a pain level of 1/10 on the verbal analog scale (0=no pain, 10=worst pain) with her neck brace in place. She reports that she lives in [place], [place]. She lives in an apartment with 11 steps to the entrance with hand rails on one side. The patient reports that at prior level of function she was able to complete all ADL tasks independently. She was having difficulty primarily related to neck pain and migraines prior to surgery. The patient reports that she would like to get dressed this morning and return home as soon as possible. PAST MEDICAL HISTORY: Past medical history can be found in the patient's medical record. OBJECTIVE FINDINGS: Bed mobility: The patient demonstrated the ability to complete all bed mobility tasks independently to include moving from supine to sit. Transfers: The patient was able to perform a functional transfer from sit to stand independently without the use of an assistive device. Activities of daily living: The patient demonstrated the ability to don her bra to include the fasteners independently as well as a gizzard puller shirt. She completed lower extremity dressing to include donning undergarments and pants independently. The patient was able to don and doff socks independently and put on her shoes independently. The patient demonstrated the ability to stand at the sink x3 minutes to complete standing grooming tasks. The patient was able to complete a toileting task independently. ASSESSMENT: The patient tolerated therapy session well. Problem List: Pain management TREATMENT PLAN: Patient is demonstrating independence and will be discharged this morning. INITIAL TREATMENT: Treatment today consisted of the initial evaluation only. The patient was educated in post op cervical fusion precautions and verbalized an understanding. She also demonstrated the ability to don and doff her cervical collar while looking in the mirror. GEO
== END 2018-09-04 09:41 | disposition home or self-care (01) | DRG 455 ==
LOC: OPS 05:39 → MED/SURG 13:35
PROVIDERS: ADMIT Neurological Surgery; ATTEND Neurological Surgery